=== PATIENT | female | born 1970 | race Caucasian/White ===

== ENCOUNTER 2020-06-16 11:03 | Emergency (ER) | payer OTHER, SELFPAY ==
[2020-06-16 11:41] VITALS: BP 142/88; PULSE 122; RESP 18; TEMP 36.8; O2SAT 98; BMI 37.9
[2020-06-16 12:14] VITALS: BP 141/83; PULSE 112; TEMP 36.8; O2SAT 98
--- NOTE | 2020-06-16 12:22 | ED.SKABFB ---
HPI - Skin/Abscess/Foreign Bdy General Chief complaint: Skin/Abscess/Foreign Body Stated complaint: vag bleed,abd pain Time Seen by Provider: 06/16/20 11:47 Source: patient Mode of arrival: ambulatory Limitations: language barrier History of Present Illness HPI narrative: 50 y/o female with history of DM, obesity, asthma, HTN presents to the ER with worsening painful abscesses to abdominal wall, left hip and right buttocks for the last 1 week. She states they started as small itchy bumps. She called her doctor at the time and was not started on antibiotics. She states over the last few days they have gotten bigger and more painful. They are red and warm. She reports the abscess on her abdominal wall is now starting to drain some blood which is what prompted her to come to the ER today. She denies fevers but admits to chills at home. No N/V/D. complaint: abscess/boil Onset (ago): week(s) (1) Tetanus up to date: unsure Location: buttocks and LLE Severity: severe Quality: burning Pain Consistency: constant Relieving factors: none Exacerbating factors: palpation and movement Context: none Associated symptoms: chills Treatments prior to arrival: bandages Related Data Previous Rx's Medication Instructions Recorded cephalexin [Keflex] 500 mg PO QID #40 cap 06/16/20 doxycycline monohydrate 100 mg PO BID 10 Days #20 cap 06/16/20 Allergies Allergy/AdvReac Type Severity Reaction Status Date / Time No Known Allergies Allergy Verified 06/16/20 11:21 [No Known Allergies*] Review of Systems Review of Systems: Constitutional: No Fever, + Chills ENT/Mouth: No sore throat, No Rhinorrhea, No Swallowing Difficulty Eyes: No Eye Pain, No Swelling, No Redness Cardiovascular: No Chest Pain, No SOB, No Orthopnea, No Edema Respiratory: No Cough, No Sputum, No Wheezing, No dyspnea Gastrointestinal: No Nausea, No Vomiting, No Diarrhea, + abdominal Pain Genitourinary: No Dysuria, No Urinary Frequency, No Hematuria Musculoskeletal: No joint pain, No Myalgias Skin: +Skin Lesions, No rash Neuro: No Weakness, No Numbness, No Dizziness, No Headache Psych: No Anxiety/Panic, No Depression Heme/Lymph: No Bruising, No Lymphadenopathy Endocrine: No Polyuria, No Polydipsia PMFSH Past Medical History Medical History (Updated 06/16/20 @ 14:03 by BENNY Patrick) Arthritis Diabetes Hypertension Social History Social History Smoking Status: Never smoker Use of substances other than those prescribed or required for medical reasons: No Advance Directives: No Advance Directives Information Provided: Yes Physical Exam Vital Signs: Vital Signs: Last Vital Signs Temp 98.9 F 06/16/20 14:19 Pulse 103 H 06/16/20 14:19 Resp 18 06/16/20 14:19 BP 129/78 06/16/20 14:19 Pulse Ox 98 06/16/20 14:19 Body Mass Index 37.9 Appearance: Alert. Oriented X3. No acute distress. Eyes: Pupils equal, round and reactive to light. ENT: Pharynx normal. Neck: Normal inspection. Neck supple. CVS: Normal heart rate and rhythm. Pulses normal. Respiratory: No respiratory distress. Breath sounds normal. Abdomen: Obese, soft. large area on lower abdominal wall with erythema, warmth, and tenderness, central area with fluctuance and blackened skin, draining serosanguinous fluid. Skin: Skin warm and dry. Normal skin color. Normal skin turgor. Left anteriolateral hip with 6cm erythematous area wtih central flakey skin, no drainage or fluctuance. Small 3cm indurated area on right buttocks, no fluctance or drainage. Extremities: No lower extremity edema. Neuro: Oriented X 3. No motor deficit. No sensory deficit. Course Course Course Narrative: 50 y/o female presenting with 3 abscesses in various stages with surrounding cellulitis. Abd wall area with significant erythema and warmth, amenable to I&D, see procedure note. Area was marked with a skin pen. Will get cultures and lab workup. IV abx ordered for now. Reevaluation(s) Reevaluation #1: Lactic acid, WBC normal, no fevers. Given Rocephin and Vanco for cellulitis/abscesses. She is non-toxic appearing. HR significantly improved to 102 after IVF. No indication for admission at this time. She is stable for d/c with plans to come back in 2 days for wound recheck. Instructed to return sooner if redness extends beyond markings or if she gets fevers at home. Importance of tight glucose control also discussed. Patient expressed understanding. Stable for d/c. Procedures Abscess I/D Site: abdomen Local Anesthetic: lidocaine 2% Amount of anesthesia used (mL): 3 Technique: incised with blade Sent for culture/gram staining?: No Irrigation: Yes Packing used?: iodoform MDM - Skin/Abscess/Foreign Bdy Differential Diagnosis Differential diagnosis: Likely abscess of skin or subcutaneous tissue, allergic reaction to drug, cellulitis, insect bites and contact dermatitis Lab Data Result diagrams: 06/16/20 12:46 06/16/20 12:46 Labs: Lab Results 06/16/20 06/16/20 06/16/20 Range/Units 12:41 12:46 12:46 WBC 10.5 (4.8-10.8) X10*3/uL RBC 5.62 H (4.20-5.50) X10*6/uL Hgb 14.6 (12.0-16.0) g/dl Hct 44.3 (37-47) % MCV 78.8 L (80-98) fL MCH 26.0 L (27.0-33.0) pg MCHC 33.0 (31.0-35.0) g/dl RDW 13.2 (11.0-16.0) % Plt Count 304 (160-400) X10*3/uL MPV 10.0 (9.4-12.3) fL Immature Gran % (Auto) 0.2 (0.0-0.4) % Neut % (Auto) 81.8 H (45-73) % Lymph % (Auto) 11.5 L (20-40) % [place] % (Auto) 5.7 (2-11) % Eos % (Auto) 0.6 (0-4) % Baso % (Auto) 0.2 (0-2) % Lymph # (Auto) 1.2 (1.2-4.9) X10*3/uL [place] # (Auto) 0.6 (0.1-1.2) X10*3/uL Eos # (Auto) 0.1 (0.0-0.4) X10*3/uL Baso # (Auto) 0.0 (0.0-0.2) X10*3/uL Abs Immat Gran (auto) 0.02 (0.00-0.03) X10*3/uL Absolute Neuts (auto) 8.6 H (2.0-8.3) X10*3/uL Absolute Nucleated RBC 0.000 (0.0-0.012) X10*3/uL Nucleated RBC % (auto) 0.0 (0.0-0.2) /100WBC Sodium 134 L (135-145) mmol/L Potassium 4.6 (3.3-5.1) mmol/l Chloride 94 L (96-108) mmol/L Carbon Dioxide 30 H (22-29) mmol/L Anion Gap 15 (12-20) BUN 6 L (9-16) mg/dL Creatinine 0.83 (0.5-1.4) mg/dL Estim Creat Clear Calc 98.9 Estimated GFR > 60 POC Glucose (60-115) mg/dL Random Glucose 359 H* (60-115) mg/dL Lactic Acid (0.5-2.0) mmol/L Calcium 9.6 (8.4-10.2) mg/dL Magnesium 1.8 (1.6-2.6) mg/dL Total Bilirubin 0.5 (0.0-1.0) mg/dL Direct Bilirubin 0.2 (0.0-0.5) mg/dL AST 13 (5-31) U/L ALT 19 (0-31) U/L Alkaline Phosphatase 70 (39-117) U/L Total Protein 7.4 (6.5-8.0) g/dL Albumin 4.1 (3.5-5.0) g/dL Urine Color YELLOW Urine Appearance HAZY Urine pH 7.0 (5.0-8.0) Ur Specific [place] 1.010 (1.005-1.025) Urine Protein NEG (NEG-TRACE) MG/DL Urine Glucose (UA) >=1000 H (NEG) MG/DL Urine Ketones 40 (NEG) MG/DL Urine Blood TRACE (NEG) Urine Nitrite NEG (NEG) Ur Leukocyte Esterase 2+ H (NEG) Urine RBC 0-2 (0) /HPF Urine WBC 76-150 H (0-4) /HPF Ur Squamous Epith Cells 1+ /LPF Urine Bacteria TRACE /LPF 06/16/20 06/16/20 Range/Units 12:46 14:14 WBC (4.8-10.8) X10*3/uL RBC (4.20-5.50) X10*6/uL Hgb (12.0-16.0) g/dl Hct (37-47) % MCV (80-98) fL MCH (27.0-33.0) pg MCHC (31.0-35.0) g/dl RDW (11.0-16.0) % Plt Count (160-400) X10*3/uL MPV (9.4-12.3) fL Immature Gran % (Auto) (0.0-0.4) % Neut % (Auto) (45-73) % Lymph % (Auto) (20-40) % [place] % (Auto) (2-11) % Eos % (Auto) (0-4) % Baso % (Auto) (0-2) % Lymph # (Auto) (1.2-4.9) X10*3/uL [place] # (Auto) (0.1-1.2) X10*3/uL Eos # (Auto) (0.0-0.4) X10*3/uL Baso # (Auto) (0.0-0.2) X10*3/uL Abs Immat Gran (auto) (0.00-0.03) X10*3/uL Absolute Neuts (auto) (2.0-8.3) X10*3/uL Absolute Nucleated RBC (0.0-0.012) X10*3/uL Nucleated RBC % (auto) (0.0-0.2) /100WBC Sodium (135-145) mmol/L Potassium (3.3-5.1) mmol/l Chloride (96-108) mmol/L Carbon Dioxide (22-29) mmol/L Anion Gap (12-20) BUN (9-16) mg/dL Creatinine (0.5-1.4) mg/dL Estim Creat Clear Calc Estimated GFR POC Glucose 264 H (60-115) mg/dL Random Glucose (60-115) mg/dL Lactic Acid 1.4 (0.5-2.0) mmol/L Calcium (8.4-10.2) mg/dL Magnesium (1.6-2.6) mg/dL Total Bilirubin (0.0-1.0) mg/dL Direct Bilirubin (0.0-0.5) mg/dL AST (5-31) U/L ALT (0-31) U/L Alkaline Phosphatase (39-117) U/L Total Protein (6.5-8.0) g/dL Albumin (3.5-5.0) g/dL Urine Color Urine Appearance Urine pH (5.0-8.0) Ur Specific [place] (1.005-1.025) Urine Protein (NEG-TRACE) MG/DL Urine Glucose (UA) (NEG) MG/DL Urine Ketones (NEG) MG/DL Urine Blood (NEG) Urine Nitrite (NEG) Ur Leukocyte Esterase (NEG) Urine RBC (0) /HPF Urine WBC (0-4) /HPF Ur Squamous Epith Cells /LPF Urine Bacteria /LPF Critical Care Time Critical Care Time Critical Care Time: No Discharge Plan Discharge Clinical Impression: Cellulitis Qualifiers: Site of cellulitis: trunk Site of cellulitis of trunk: abdominal wall Qualified Code(s): L03.311 - Cellulitis of abdominal wall Abscess of skin or subcutaneous tissue Qualifiers: Site of cutaneous abscess: trunk Site of cutaneous abscess of trunk: abdominal wall Qualified Code(s): L02.211 - Cutaneous abscess of abdominal wall Patient Disposition: Home, Self-Care Instructions: Cellulitis (ED), Abscess (ED) Additional Instructions: Come back to the ER in 2 days to remove the packing and to re-evaluate your skin infection. If you notice redness is spreading beyond the markings or if you develop fevers at home despite antibiotics come back to the ER sooner. Take the prescribed antibiotics as directed. It is important to keep your glucose under tight control while your body is fighting this infection. Check your glucose before meals and before bed. Prescriptions: New doxycycline monohydrate 100 mg capsule 100 mg PO BID 10 Days Qty: 20 RF: 0 cephalexin [Keflex] 500 mg capsule 500 mg PO QID Qty: 40 RF: 0 Print Language: Estonian
[2020-06-16] MEDS: 0.9 % Sodium Chloride 1,000 ML 999 ML IVCONT (12:45)
[2020-06-16 12:54] LABS: Glucose Urine UA >=1000 MG/DL (NEG); Leukocyte Esterase Urine 2+ (NEG); Nitrite Urine NEG (NEG); Urine Blood TRACE (NEG); Urine Ketones 40 MG/DL (NEG); Urine Protein NEG (NEG-TRACE)
[2020-06-16 12:55] LABS: Basophils Percent Auto 0.2 % (0-2); Eosinophils Absolute Auto 0.1 X10*3/uL (0.0-0.4); Eosinophils Percent Auto 0.6 % (0-4); Hematocrit 44.3 % (37-47); Hemoglobin 14.6 g/dl (12.0-16.0); Imm Gran Abs Auto 0.02 X10*3/uL (0.00-0.03); Imm Gran Pct Auto 0.2 % (0.0-0.4); Lymphocytes Absolute Auto 1.2 X10*3/uL (1.2-4.9); Lymphocytes Percent Auto 11.5 % (20-40); MANUAL DIFF FLAG NO; Mean Corpuscular Volume 78.8 fL (80-98); Monocytes Absolute Auto 0.6 X10*3/uL (0.1-1.2); Monocytes Percent Auto 5.7 % (2-11); Neutrophils Absolute Auto 8.6 X10*3/uL (2.0-8.3); Neutrophils Percent Auto 81.8 % (45-73); Platelet Count 304 X10*3/uL (160-400); Red Blood Count 5.62 X10*6/uL (4.20-5.50); Red Cell Distribution Width 13.2 % (11.0-16.0); White Blood Count 10.5 X10*3/uL (4.8-10.8)
[2020-06-16 13:03] LABS: Appearance Urine HAZY; Color Urine YELLOW
[2020-06-16 13:10] LABS: Lactic Acid 1.4 mmol/L (0.5-2.0)
[2020-06-16] MEDS: cefTRIAXone sodium 1 GM in 0.9 % Sodium Chloride 50 ML IV (13:10)
[2020-06-16 13:22] LABS: Alanine Aminotransferase 19 U/L (0-31); Albumin Level 4.1 g/dL (3.5-5.0); Alkaline Phosphatase 70 U/L (39-117); Anion Gap 15 (12-20); Aspartate Amino Transferase 13 U/L (5-31); Bilirubin Direct 0.2 mg/dL (0.0-0.5); Bilirubin Total 0.5 mg/dL (0.0-1.0); Blood Urea Nitrogen 6 mg/dL (9-16); Calcium 9.6 mg/dL (8.4-10.2); Carbon Dioxide 30 mmol/L (22-29); Chloride 94 mmol/L (96-108); Creatinine Clr Calc Pharmacy 98.9; Estimated Glomerular Filt Rate > 60; Glucose Random 359 mg/dL (60-115); Magnesium 1.8 mg/dL (1.6-2.6); Potassium 4.6 mmol/l (3.3-5.1); Sodium 134 mmol/L (135-145); Total Protein 7.4 g/dL (6.5-8.0)
[2020-06-16 13:34] LABS: Bacteria Urine TRACE /LPF; RBC Urine 0-2 /HPF (0); Squamous Epithelial Cell Urine 1+ /LPF
[2020-06-16] MEDS: Lidocaine HCl 2 % MPF 5 ML VIAL INFILTRATI (14:09)
[2020-06-16] MEDS: 0.9 % Sodium Chloride 500 ML IV (14:10)
[2020-06-16 14:19] VITALS: BP 129/78; PULSE 103; RESP 18; TEMP 37.2; O2SAT 98
--- NOTE | 2020-06-16 14:21 | PC.NURSE ---
PT ARRIVES FROM HOME WITH 3 ABSCESSES STARTED 7 DAYS AGO, CHILLS AT HOME. SLIGHTLY TACHYCARDIC ON ARRIVAL, ANXIOUS. PA RUPALI IN FOR I&D OF ABSCESS ON LOWER ABDOMEN. IV ABT RUNNING. BLOOD SUGAR HAS LOWERED AFTER 1L NS, INSULIN HELD, PA AWARE. PT CURRENTLY RESTING COMFORTABLY, VS WNL AT THIS TIME.
[2020-06-16 14:29] LABS: Glucose, Whole Blood 264 mg/dL (60-115)
== END 2020-06-16 16:16 | disposition home or self-care (01) ==
PROVIDERS: Physician Assistant; Emergency Provider Emergency Medicine
DX: L02.211 Cutaneous abscess of abdominal wall (principal); L03.311 Cellulitis of abdominal wall; I10 Essential (primary) hypertension; E11.9 Type 2 diabetes mellitus without complications
CPT/HCPCS: 10060; 36415; 80048; 80076; 81001; 82947; 83605; 83735; 85025; 87040; 87086; 96365; 96367; 99284; J0696; J3370

== ENCOUNTER 2020-06-18 11:16 | Emergency (ER) | payer OTHER, SELFPAY ==
[2020-06-18 12:30] VITALS: BP 136/96; PULSE 112; RESP 18; TEMP 36.9; O2SAT 96; BMI 83.6
--- NOTE | 2020-06-18 12:48 | ED_ITS ---
HPI - Wound/Laceration General Chief Complaint: Wound/Laceration Stated Complaint: PACKING REMOVAL Time Seen by Provider: 06/18/20 12:48 Source: patient Mode of arrival: ambulatory Limitations: language barrier History of Present Illness HPI narrative: 50 y/o male presenting back for wound re-evaluation and packing removal of abdominal wall abscess s/p I&D and packing placenment 2 days ago. She reports improving pain, redness, and warmth. She has been taking her antibiotics as prescribed. No fevers at home. Onset (ago): day(s) (5) Location: abdomen Place: home Associated symptoms: pain (improving) Treatments prior to arrival: bandage Related Data Previous Rx's Medication Instructions Recorded cephalexin [Keflex] 500 mg PO QID #40 cap 06/16/20 doxycycline monohydrate 100 mg PO BID 10 Days #20 cap 06/16/20 Allergies Allergy/AdvReac Type Severity Reaction Status Date / Time No Known Allergies Allergy Verified 06/16/20 11:21 [No Known Allergies*] Review of Systems Review of Systems: Constitutional: No Fever, No Chills Cardiovascular: No Chest Pain, No SOB Respiratory: No Cough, No Sputum, Gastrointestinal: No Nausea, No Vomiting, No Diarrhea, + abdominal Pain (improving) Genitourinary: No Dysuria, No Urinary Frequency, No Hematuria Musculoskeletal: No joint pain, No Myalgias Skin: + Skin Lesions, No rash Neuro: No Weakness, No Headache Psych: No Anxiety/Panic, No Depression Heme/Lymph: No Bruising, No Lymphadenopathy Endocrine: No Polyuria, No Polydipsia PMFSH Past Medical History Attestation statement: The following information was validated with the patient. Medical History Arthritis Diabetes Hypertension Social History Social History Smoking Status: Never smoker Advance Directives: No Advance Directives Information Provided: Yes Physical Exam Vital Signs: Vital Signs: Last Vital Signs Temp 98.4 F 06/18/20 12:30 Pulse 112 H 06/18/20 12:30 Resp 18 06/18/20 12:30 BP 136/96 H 06/18/20 12:30 Pulse Ox 96 06/18/20 12:30 Body Mass Index 83.6 Appearance: Alert. Oriented X3. Mild anxiety about packing removal. HEENT: normal inspection CVS: rapid rate, regular rhythm. Pulses normal. Respiratory: No respiratory distress. Abd: obese, lower abdominal wall with improving cellulitis, erythema within markings now. packing removed with no further drainage. Skin: Skin warm and dry. Extremities: no LE edema Neuro: Oriented X 3. No motor deficit. No sensory deficit. Course Course Course Narrative: Improving cellulitis on PO antibiosis. No systemic signs of infection. HR 110 noted on arrival - nervous about packing removal. No fevers. Redness is improving. Packing removed with no need to reinsert. She is stable to continue oral antibiotics and follow up with PCP to ensure resolution. Critical Care Time Critical Care Time Critical Care Time: No Discharge Plan Discharge Clinical Impression: Cellulitis Qualifiers: Site of cellulitis: trunk Site of cellulitis of trunk: abdominal wall Qualified Code(s): L03.311 - Cellulitis of abdominal wall Patient Disposition: Home, Self-Care Instructions: Cellulitis (ED) Additional Instructions: Your skin infection is healing slowly. Change the dressing daily. Use warm compresses to the area as needed. Continue to take the antibiotics previously prescribed for the full 10 days. Monitor for worsening redness, fevers, increased drainage or pain - if you develop these come back to the ER immediately for further evaluation. Follow up with your doctor this week. Prescriptions: No Action doxycycline monohydrate 100 mg capsule 100 mg PO BID 10 Days Qty: 20 RF: 0 cephalexin [Keflex] 500 mg capsule 500 mg PO QID Qty: 40 RF: 0 Discharge Date/Time: 06/18/20 13:31 Print Language: [place]
== END 2020-06-18 13:31 | disposition home or self-care (01) ==
PROVIDERS: Emergency Provider Emergency Medicine
DX: L03.311 Cellulitis of abdominal wall (principal); Z79.899 Other long term (current) drug therapy
CPT/HCPCS: 99283

== ENCOUNTER 2021-03-17 13:19 | Emergency (ER) | payer OTHER, SELFPAY ==
[2021-03-17 15:01] VITALS: BP 177/89; PULSE 101; RESP 18; TEMP 37; O2SAT 98; BMI 37.9
[2021-03-17] MEDS: Diphth,Pertus(ACell),Tet Adult 0.5 ML SYRINGE IM (17:05)
[2021-03-17] MEDS: Lidocaine HCl 1 % MPF 5 ML VIAL SUBCUT (17:06)
--- NOTE | 2021-03-17 17:19 | ED.WOUNDLAC ---
HPI - Wound/Laceration General Chief Complaint: Wound/Laceration Stated Complaint: rt hand laceration Time Seen by Provider: 03/17/21 16:32 Source: patient Mode of arrival: ambulatory Limitations: language barrier (Ukrainian-speaking) History of Present Illness HPI narrative: 50-year-old female presenting to the ED with complaints of a laceration to her right hand that she sustained while making food while at her house with a knife prior to arrival. She reports that she is not up-to-date on tetanus. She denies any thoughts of foreign bodies or bony tenderness. She denies any other symptoms complaints or concerns at this time. Onset (ago): minute(s) (Prior to arrival) Extremity Location: right: hand Place: home Patient tetanus UTD: No Context: accidental Associated symptoms: pain Treatments prior to arrival: bandage Related Data Previous Rx's Medication Instructions Recorded cephalexin 500 mg capsule (Keflex) 500 mg PO QID #40 cap 06/16/20 doxycycline monohydrate 100 mg 100 mg PO BID 10 Days #20 cap 06/16/20 capsule cephalexin 500 mg capsule 500 mg PO Q6H 7 Days #28 cap 03/17/21 Allergies Allergy/AdvReac Type Severity Reaction Status Date / Time No Known Allergies Allergy Verified 06/16/20 11:21 [No Known Allergies*] Review of Systems Review of Systems: Constitutional : No Fever, No Chills, Cardiovascular : No Chest Pain, No SOB Respiratory : No Dyspnea Gastrointestinal : No abdominal pain Musculoskeletal : No Joint Swelling Skin : positive skin laceration, No Foreign bodies, No rash, No surrounding erythema Neuro : No Weakness, No Numbness/tingling Psych : No SI/HI/thoughts of self injury Yes all other systems are reviewed and are negative [facility] Past Medical History Attestation statement: The following information was validated with the patient. Medical History Arthritis Diabetes Hypertension Social History Social History Advance Directives: No Advance Directives Information Provided: No Physical Exam Vital Signs: Vital Signs: Last Vital Signs Temp 98.6 F 03/17/21 15:01 Pulse 101 H 03/17/21 15:01 Resp 18 03/17/21 15:01 BP 177/89 H 03/17/21 15:01 Pulse Ox 98 03/17/21 15:01 Body Mass Index 37.9 vital signs have been reviewed as normal and appeared to be correct. Blood pressure hypertensive 177/89 Heart rate tachycardic at 101. Respiration rate normal. Temperature normal. Oxygen saturation normal. Appearance: Alert. Oriented X3. No acute distress. Head: Normal external exam. Normocephalic. Atraumatic. Eyes: PERRLA. EOMI. Conjunctiva and sclera normal. Eyelids normal. ENT: Pharynx normal. Uvula midline. Moist mucous membranes. Neck: Normal inspection. Neck supple. FROM. CVS: Normal heart rate and rhythm. Respiratory: No respiratory distress. Painless inspiration. Back: Full range of motion noted. No rashes/lesion/induration/fluctuance or signs of infection noted. Skin: Skin warm and dry. Normal skin color. Normal skin turgor. No rashes/lesions/lacerations noted. Extremities: Patient with linear 2 cm laceration to the palmar aspect of the right hand no active bleeding or foreign bodies. No bony tenderness noted. No obvious ligamentous or tendon injury is noted. Otherwise all other Extremities exhibit normal range of motion and nontender. Neuro: Oriented X 3. No motor deficit. No sensory deficit. Reflexes normal. Normal steady gait. No focal neuro deficits noted. Vascular: + radial pulses Normal cap refill. No cyanosis noted to upper extremity nails Course Course Course Narrative: Patient is now status post laceration repair with 5 sutures placed. Patient tolerated procedure well. No complication. No imaging indicated. Patient is not up-to-date on tetanus. Will DC home with instructions return in 10 days for suture removal and to follow up with primary care provider and to return sooner if any new or worsening symptoms. Patient understands agrees with this plan. [facility] - Wound/Laceration Medical Records Attestation: I reviewed the patient's medical records. Procedures Laceration Laceration 1: Site: hand Side (If applicable): left Size (cm): 2 Description: linear Depth: simple, single layer Local Anesthetic: lidocaine 1% Amount of anesthesia used (mL): 4 Pre-repair: wound explored, irrigated extensively and deep structures intact Skin layer closed with: nylon Size (cm): 4-0 Number of sutures: 5 Technique: simple, interrupted Discharge Plan Discharge Clinical Impression: Laceration Patient Disposition: Home, Self-Care Instructions: Laceration (ED) Prescriptions: New cephalexin 500 mg capsule 500 mg PO Q6H 7 Days Qty: 28 RF: 0 No Action doxycycline monohydrate 100 mg capsule 100 mg PO BID 10 Days Qty: 20 RF: 0 cephalexin [Keflex] 500 mg capsule 500 mg PO QID Qty: 40 RF: 0 Referrals: Dayna Snyder PA [Emergency Midlevel Provider] - 10 days (For suture removal; para la extracci?n de sutura) Print Language: Ukrainian
== END 2021-03-17 17:35 | disposition home or self-care (01) ==
PROVIDERS: Emergency Provider Emergency Medicine Emergency Medical Services
DX: S61.411A Laceration without foreign body of right hand, initial encounter (principal); M79.641 Pain in right hand; W26.0XXA Contact with knife, initial encounter; Y93.G3 Activity, cooking and baking; Y92.000 Kitchen of unspecified non-institutional (private) residence as the place of occurrence of the external cause; Y99.9 Unspecified external cause status
CPT/HCPCS: 12001; 90471; 90715; 99283; 99284

== ENCOUNTER 2023-10-03 17:26 | Emergency (ER) | payer OTHER, SELFPAY ==
--- NOTE | 2023-10-03 | ECG_ITS ---
Test Reason : RIGHT SIDED CHEST PAIN Blood Pressure : / mmHG Vent. Rate : 104 BPM Atrial Rate : 104 BPM P-R Int : 122 ms QRS Dur : 084 ms QT Int : 344 ms P-R-T Axes : 028 022 008 degrees QTc Int : 452 ms Sinus tachycardia Otherwise normal ECG When compared with ECG of 15-SEP-2015 20:56, No significant change was found Referred By: Generic ED Physician Electronically Signed By:Yaya Kelsey
--- NOTE | ~2023-10-03 | XR_ITS ---
EXAMINATION: XR SHOULDER, RIGHT CLINICAL INFORMATION: Pain COMPARISON: Right shoulder x-ray on 02/06/2019 TECHNIQUE: AP external rotation, Grashey, scapular Y, and axillary views of the right shoulder. FINDINGS: There is mild acromioclavicular osteoarthritis. Glenohumeral joint is well preserved. No fracture. Alignment is anatomic. Soft tissues are normal with no abnormal calcifications. XR/XR shoulder RT min 2V IMPRESSION: Mild acromioclavicular joint arthritis.
[2023-10-03 18:07] VITALS: BP 178/100; PULSE 108; RESP 20; TEMP 37; O2SAT 97; BMI 37.9
--- NOTE | 2023-10-03 21:42 | ED.GENADULT ---
HPI - General Adult General Chief complaint: Extremity Problem Stated complaint: Rt shoulder/side pain Time Seen by Provider: 10/03/23 21:33 Source: patient, RN notes reviewed, old records reviewed and cardiothoracic surgeon Mode of arrival: ambulatory Limitations: language barrier History of Present Illness HPI narrative: 63-year-old female presents for evaluation of right shoulder pain. She reports the pain started yesterday and was dull. Now the pain is much more severe She reports that she can not turn her head to the side because the pain She reports that whenever she touches her chest she has pain Patient reports it hurts to take a deep breath as well Denies any injury to the right shoulder Patient reports a history of diabetes but no other medical history She has not taken any medication to help alleviate her pain Related Data Previous Rx's ?Medication ?Instructions ?Recorded cephalexin 500 mg capsule (Keflex) 500 mg PO QID #40 caps 06/16/20 doxycycline monohydrate 100 mg 100 mg PO BID 10 days #20 caps 06/16/20 capsule cephalexin 500 mg capsule 500 mg PO Q6H 7 days #28 caps 03/17/21 cyclobenzaprine 10 mg tablet 10 mg PO TID PRN muscle spasm #15 10/03/23 tabs naproxen 500 mg tablet 500 mg PO BID PRN pain #20 tabs 10/03/23 Allergies Allergy/AdvReac Type Severity Reaction Status Date / Time No Known Allergies Allergy Verified 10/03/23 18:10 [No Known Allergies*] Review of Systems Constitutional: Constitutional: Denies body ache(s), Denies chills, Denies fever(s) and Denies headache(s) Eyes: Eyes: Denies blurry vision ENT: Denies headache(s), Reports neck pain and Denies sore throat Cardiovascular: Cardiovascular: Reports chest pain and Denies dyspnea Respiratory: Respiratory: Denies cough and Denies dyspnea Gastrointestinal: Gastrointestinal: Denies abdominal pain, Denies nausea and Denies vomiting Musculoskeletal: Musculoskeletal: Reports back pain, Reports arthralgias, Reports limited range of motion, Reports neck pain and Reports stiffness Integumentary/Breasts: Skin/Breast: Denies rash Neurologic: Denies headache(s) [facility] Past Medical History Medical History Arthritis Diabetes Hypertension Social History Social History (System 11/18/21 @ 14:43 by Carlton Taylor) Advance Directives: No Advance Directives Information Provided: No Physical Exam ED Vital Signs: Vital Signs - 24 hr 10/03/23 18:07 10/03/23 22:06 Temperature 98.6 F 98.6 F Pulse Rate 108 H 108 H Respiratory Rate 20 20 Blood Pressure 178/100 H 178/100 H Pulse Oximetry 97 97 Oxygen Delivery Method Room Air Room Air BMI result Body Mass Index 37.9 Const General: healthy appearing, comfortable, no acute distress, alert and awake Nutritional Appearance: well nourished Orientation/consciousness: patient oriented x3 HENMT Head: Yes normocephalic and Yes atraumatic Eyes Eyelids: Yes eyelids normal Conjunctivae: conjunctivae normal Sclerae: sclerae normal Corneas: corneas normal Pupils: Equal, round and reactive pupils present EOM: EOMs intact bilaterally Neck Other: Patient has tenderness to right cervical paraspinous region. No vertebral tenderness. No step-offs or deformities. Chest Other: Patient has tenderness to the right anterior chest wall at the level of the clavicle and down to about the 3rd rib. There is no crepitus or palpable deformities Chest palpation & inspection: normal inspection of the chest Resp Effort & Inspection: normal respiratory effort, able to speak in complete sentences and not labored Cardio Rate: regular rate Rhythm: regular rhythm GI Inspection: No distended Palpation (GI): Soft to palpation, not firm, nontender, no guarding and not rigid Skin General skin exam: elasticity normal Neuro Other: [employer] strength 5+ and equal bilaterally General: patient oriented x3 Cranial nerves: Yes Equal, round and reactive pupils present and Yes Bilaterally intact EOM present Cognition (Neuro): normal cognition Extrem Other: Patient has tenderness in the right shoulder, specifically over the right acromioclavicular joint. She is unable to lift her right upper extremity above her shoulder. Medications Administered Discontinued Medications Generic Name Dose Route Start Last Admin Trade Name Freq PRN Reason Stop Dose Admin Cyclobenzaprine HCl 10 mg 10/03/23 21:42 10/03/23 22:02 Cyclobenzaprine Hcl 10 Mg Tablet PO 10/03/23 21:43 10 mg ONCE ONE Administration Ketorolac Tromethamine 30 mg 10/03/23 21:42 10/03/23 22:02 Ketorolac Tromethamine 30 Mg/Ml Vial IM 10/03/23 21:43 30 mg ONCE ONE Administration Medical Decision Making Medical Decision Making MDM Narrative: Patient complains of right shoulder pain that is atraumatic. Her x-ray shows arthritis of the right shoulder. Her physical exam is reproducible pain to her entire right shoulder, right lateral neck and right chest. Her exam is overwhelmingly favoring musculoskeletal origin of her chest pain. Her EKG is sinus tachycardia without evidence of ischemia. ACS is favored to be less likely. Plan to treat with symptomatic care and the patient was given return precautions Differential Diagnosis Differential Diagnoses: The differential diagnosis associated with the presentation includes Arthritis Tendonitis Shoulder pain Muscle strain ACS less likely Independent Interpretation I performed an independent interpretation of an: Plain X-Ray (No obvious fracture of the right shoulder) Radiology Impression Discussion of test interpretation with radiology: I have reviewed the radiologist's reading. Radiologist Impression: Mild acromioclavicular joint arthritis Discharge Plan Discharge Clinical Impression: Acute pain of right shoulder Patient Disposition: Home, Self-Care Instructions: Shoulder Pain (ED) Additional Instructions: Your x-ray showed arthritis of the right shoulder. Use naproxen as needed for pain. Take cyclobenzaprine as needed for muscle spasms Apply warm compresses to your neck as this will likely help with the stiffness Follow-up your primary doctor Return for new or worsening symptoms Prescriptions: New naproxen 500 mg tablet 500 mg PO BID PRN (Reason: pain) Qty: 20 0RF cyclobenzaprine 10 mg tablet 10 mg PO TID PRN (Reason: muscle spasm) Qty: 15 0RF No Action doxycycline monohydrate 100 mg capsule 100 mg PO BID 10 Days Qty: 20 0RF cephalexin [Keflex] 500 mg capsule 500 mg PO QID Qty: 40 0RF cephalexin 500 mg capsule 500 mg PO Q6H 7 Days Qty: 28 0RF Interventions: ED Discharge Assessment Last Done: 10/03/23 22:06 Print Language: Pashto
[2023-10-03] MEDS: Cyclobenzaprine HCl 10 MG TABLET PO (22:02)
[2023-10-03] MEDS: Ketorolac Tromethamine 30 MG/ML VIAL IM (22:02)
[2023-10-03 22:06] VITALS: BP 178/100; PULSE 108; RESP 20; TEMP 37; O2SAT 97
== END 2023-10-03 22:54 | disposition home or self-care (01) ==
PROVIDERS: Emergency Provider Emergency Medicine
DX: M25.511 Pain in right shoulder (principal); R07.89 Other chest pain; Z79.899 Other long term (current) drug therapy
CPT/HCPCS: 73030; 93005; 96372; 99283; 99284; J1885

== ENCOUNTER → 2023-10-03 18:23 | Outpatient (BNV) | payer OTHER, SELFPAY | PROVIDERS: Emergency Provider Emergency Medicine; Visit Provider Internal Medicine Cardiovascular Disease | DX: R00.0 Tachycardia, unspecified (principal) | CPT/HCPCS: 93010 ==